=== PATIENT | female | born 1935 | race African-American/Black ===

== ENCOUNTER → 2016-08-25 | Emergency (ER) | payer OTHER ==
[~2016-08-25] MED LIST: EPINEPHrine/PF 1 MG/1 ML (1:1,000) AMPULE IVPUSH ONE; NOREPINEPHRINE BITARTRATE 4 MG/4 ML ML IV ONE; NOREPINEPHRINE BITARTRATE 4,000 MCG in DEXTROSE 5%-WATER - 496 ML IV SCH; PIPERACILLIN/TAZOB 3.375 GM/50 ML PRE-DOCKED IV ONE; SODIUM BICARBONATE 4.2% 5 MEQ/10 ML DISP.SYRIN IVPUSH ONE; SODIUM BICARBONATE 8.4% - 50 ML ONE; SODIUM BICARBONATE 8.4% 50 MEQ/50 ML VIAL IV ONE; VANCOMYCIN 1,000 MG in DEXTROSE 5%-WATER - 250 ML IVPB ONE
[2016-08-25 11:11] VITALS: BMI 31.8
[2016-08-25 12:06] LABS: MCH 23.5 pg (25.7-33.7)
--- NOTE | 2016-08-25 12:10 | PDOC ---
History of Present Illness - History of Present Illness Initial Comments: 08/25/16 13:07 Patient is an 81 year old female with significant medical hx of CHF, HTN and COPD who has been brought to the ED for cardiac arrest since 9:30 AM. The patient was found by her daughter unresponsive and called EMS; they arrived at the scene at 10:13AM. EMS found her asystolic and ACLS protocol was initiated; epinephrine x 4 was given in the field with return of spontaneous circulation. However, prior to arrival, the patient lost blood pressure and returned to asystole. Patient arrived to ED in full cardiopulmonary arrest with active CPR in progress. <Jada Montenegro - Last Filed: 08/25/16 13:07> - General History Source: EMS, Family Exam Limitations: Clinical Condition <Sanjuana Salinas - Last Filed: 08/25/16 13:45> - General Chief Complaint: Cardiac Arrest Stated Complaint: CARIDAC ARREST Time Seen by Provider: 08/25/16 11:38 Past History <Jada Montenegro - Last Filed: 08/25/16 13:07> - Past Medical History Anemia: Yes Asthma: Yes Cardiac Disorders: Yes COPD: Yes (O2 Dependent) HTN: Yes - Surgical History Appendectomy: Yes - Immunization History Immunization Up to Date: No - Psycho/Social/Smoking Cessation Hx Anxiety: No Suicidal Ideation: No Smoking History: Former smoker Have you smoked in the past 12 months: No If you are a former smoker, when did you quit?: 1947 Information on smoking cessation initiated: No Hx Alcohol Use: No Drug/Substance Use Hx: No Substance Use Type: None Hx Substance Use Treatment: No <Sanjuana Salinas - Last Filed: 08/25/16 13:45> - Past Medical History Allergies/Adverse Reactions: Allergies Allergy/AdvReac Type Severity Reaction Status Date / Time No Known Allergies Allergy Verified 08/25/16 11:11 Home Medications: Ambulatory Orders Acetaminophen [Tylenol] 650 mg PO Q4H PRN 05/27/16 Albuterol 2.5/Ipratropium 0.5 [Duoneb -] 1 neb NEB Q6H 05/27/16 Bumetanide [Bumex -] 2 mg PO BID 05/27/16 Budesonide/Formeterol Fumarate [SYMBICORT 160/4.5mcg -] 2 puff IH BID #1 inhaler 06/06/16 Metoprolol Tartrate [Lopressor -] 75 mg PO BID #28 tablet 06/06/16 Prednisone [Deltasone -] 40 mg PO DAILY #20 tablet 06/06/16 Acetazolamide [Diamox -] 500 mg PO BID #28 tablet 06/08/16 Digoxin [Lanoxin -] 0.125 mg PO DAILY #14 tablet 06/08/16 Folic Acid 1 mg PO DAILY #14 tablet 06/08/16 Melatonin 6 mg PO HS #40 tablet 06/08/16 Polyethylene Glycol 3350 [Miralax 119 gm Btl -] 17 gm PO DAILY #14 bottle Potassium Chloride 20 meq PO BID #40 tablet.er 06/08/16 Prednisone [Deltasone -] 20 mg PO DAILY tablet 06/08/16 Tiotropium [place] [Spiriva] 18 mcg IH DAILY #1 inhaler 06/08/16 Warfarin Sodium [Coumadin] 3 mg PO DAILY #20 tablet 06/08/16 Review of Systems - Review of Systems Comments:: 08/25/16 13:08 Unable to asses. <Jada Montenegro - Last Filed: 08/25/16 13:07> *Physical Exam - Vital Signs Last Vital Signs Temp Pulse Resp BP Pulse Ox 96.0 F L 105 H 20 195/90 100 08/25/16 12:01 08/25/16 12:01 08/25/16 12:01 08/25/16 12:01 08/25/16 12:01 - Physical Exam Comments: 08/25/16 13:09 GENERAL: Unresponsive HEAD: No signs of trauma EYES: Both pupils are post surgical and fixed. ENT: Patient is intubated NECK: Limited. No tracheal deviation. No JVD. LUNGS: ET tube placement placed by auscultation, breath sounds equal bilaterally with expiratory wheezing. HEART: Initial rhythm asystolic, given epinephrine x 2 and bicarb x 1 with return of spontaneous circulation. ABDOMEN: Obese, soft. EXTREMITIES: 3+ pitting edema lower extremities bilaterally with chronic venous stasis changes. NEUROLOGICAL: Intubated. SKIN: Warm, Dry, normal turgor, no rashes or lesions noted. <Jada Montenegro - Last Filed: 08/25/16 13:07> - Vital Signs Last Vital Signs Temp Pulse Resp BP Pulse Ox 0 L 0/0 08/25/16 11:04 08/25/16 11:04 <RitaSanjuana - Last Filed: 08/25/16 13:45> Heart Score/ECG Review #1 08/25/16 13:32 Sinus tachycardia at 121 bpm Possible Left atrial enlargement Incomplete right bundle branch block Nonspecific ST abnormality Abnormal ECG <Jada Montenegro - Last Filed: 08/25/16 13:07> ED Treatment Course - LABORATORY CBC & Chemistry Diagram: 08/25/16 11:50 08/25/16 11:50 - ADDITIONAL ORDERS Additional order review: Laboratory Results 08/25/16 08/25/16 12:12 11:50 INR 3.99 H D PTT (Actin FS) 41.8 H Urine Color Yellow Urine Appearance Slcloudy Urine pH 6.0 Ur Specific Osborn 1.010 Urine Protein 1+ H Urine Glucose (UA) Negative Urine Ketones Negative Urine Blood Negative Urine Nitrite Negative Urine Bilirubin Negative Urine Urobilinogen 2.0 e.u/dl H Ur Leukocyte Esterase 3+ H 08/25/16 11:50 RBC 3.59 L MCV 87.8 MCHC 26.7 L RDW 20.3 H D MPV 9.5 Neutrophils % 55.9 D Lymphocytes % 35.8 D Monocytes % 6.9 Eosinophils % 0.7 D Basophils % 0.7 D - RADIOLOGY Radiograph Interpretation: 08/25/16 13:27 Chest X-Ray Since 06/01/2016, again noted is the large heart with degenerative changes. There is a new endotracheal tube with tip well above the brad. There is new NG tube with its tip below the GE junction. The lungs appear better aerated though there is still some atelectasis or infiltrate at both bases. There ay be right pleural fluid as well. Follow-up recommended. Reported By: Trevor Foster MD - Medications Given in the ED: ED Medications Discontinued Medications Generic Name Dose Route Start Last Admin Trade Name Freq PRN Reason Stop Dose Admin Epinephrine HCl 816.47 mcg 08/25/16 12:14 08/25/16 12:27 Epinephrine 1:1000 P/F - IVPUSH 08/25/16 12:15 816.47 mcg ONCE ONE Administration Epinephrine HCl 1 mg 08/25/16 12:16 08/25/16 12:27 Adrenalin 1:10,000 - IVPUSH 08/25/16 12:17 1 mg ONCE ONE Administration Sodium Bicarbonate 4.2 meq 08/25/16 12:15 08/25/16 12:27 Sodium Bicarbonate 4.2% - IVPUSH 08/25/16 12:16 4.2 meq ONCE ONE Administration Sodium Bicarbonate 1 meq 08/25/16 12:17 08/25/16 12:27 Sodium Bicarbonate 8.4% - IV 08/25/16 12:18 1 meq ONCE ONE Administration - Consult/PCP Time Called: 12:20 (spoke with covering physician for Dr. Miller) Case discussed with personal care physician: Ottoniel Miller <Jada Montenegro - Last Filed: 08/25/16 13:07> - LABORATORY CBC & Chemistry Diagram: 08/25/16 11:50 08/25/16 11:50 - RADIOLOGY Radiology Studies Ordered: Category Date Time Status CHEST X-RAY PORTABLE* [RAD] Stat Radiology 08/25/16 11:41 Taken <Sanjuana Salinas - Last Filed: 08/25/16 13:45> Medical Decision Making - Medical Decision Making 08/25/16 13:40 81-year-old female with history of COPD, hypertension, CHF who presented to the emergency department by EMS intubated in full cardiopulmonary arrest with CPR in progress following an asystolic arrest. The patient had return of spontaneous circulation in the field transiently but lost her blood pressure and pulse and presented to the emergency department asystolic. ACLS protocol including chest compressions was continued with multiple rounds of epi and bicarbonate given. The patient had 4 episodes of cardiac arrest in the emergency department with return of spontaneous circulation 3 times. Both myself and Dr. Gardiner, the hospitalist, had mey conversations with the family including poor prognosis as well as medical futility following the multiple episodes of cardiac arrest. It was decided that given the patient's poor prognosis, if she went into cardiac arrest an additional time there would be no further resuscitative efforts (see code sheet). The family was in agreement with this plan. The patient was pronounced at 12:53 PM. The patient's next of kin rapid bedside and are obviously informed of the patient's . The medical assistant prn was called and the case was declined for autopsy. Dr. Hernandez (covering for Dr. Miller) was initially called and informed of the patient's condition and poor prognosis. We are actively calling him back to inform him of the patient's . <Sanjuana Salinas - Last Filed: 08/25/16 13:45> *DC/Admit/Observation/Transfer - Attestations Scribe Attestion: 08/25/16 13:27 Documentation prepared by Jada Montenegro, acting as medical practice manager for Sanujana Salinas MD. <Jada Montenegro - Last Filed: 08/25/16 13:07> - Discharge Dispostion Admit: No - Attestations Physician Attestion: 08/25/16 13:44 I, Dr. Sanjuana Salinas, attest that the scribes documentation that appears above has been prepared under my direction and personally reviewed by me in its entirety. I confirmed that the note above accurately reflects all work, treatment, procedures, and medical decision-making performed by me. <Sanjuana Salinas - Last Filed: 08/25/16 13:45> Diagnosis at time of Disposition: Cardiac arrest - Discharge Dispostion Disposition: Condition at time of disposition: - Referrals Referrals: Ottoniel Miller MD [Primary Care Provider] -
[2016-08-25 12:12] VITALS: BP 195/90; PULSE 105; TEMP 96
[2016-08-25 12:12] LABS: MCHC 26.7 g/dl (32.0-36.0); MEAN CELL VOLUME 87.8 fl (80-96); MEAN PLT VOLUME 9.5 fl (7.5-11.1); RDW 20.3 % (11.6-15.6); WHITE BLOOD COUNT 18.2 K/mm3 (4.0-10.0)
[2016-08-25 12:19] LABS: INR 3.99 (0.82-1.09); PROTHROMBIN TIME (PATIENT) 45.2 SEC (9.98-11.88)
[2016-08-25 12:22] LABS: ACTIVATED PTT 41.8 SECONDS (26.9-34.4)
[2016-08-25 12:32] LABS: ALBUMIN 1.9 g/dl (3.4-5.0); BILIRUBIN,TOTAL 0.8 mg/dL (0.2-1.0); CALCIUM 7.8 mg/dL (8.5-10.1); CREATININE 1.6 mg/dL (0.55-1.02); MAGNESIUM 2.6 mg/dL (1.8-2.4); TOT PROT 4.8 g/dl (6.4-8.2)
[2016-08-25 12:35] LABS: URINE APPEARANCE SLCLOUDY; URINE BILIRUBIN NEGATIVE (NEGATIVE); URINE BLOOD NEGATIVE (NEGATIVE); URINE COLOR YELLOW; URINE GLUCOSE (UA) NEGATIVE (NEGATIVE); URINE KETONE NEGATIVE (NEGATIVE); URINE NITRITE NEGATIVE (NEGATIVE); URINE UROBILINOGEN 2.0 E.U/dl E.U./dl (0.2-1.0)
[2016-08-25 12:38] LABS: URINE LEUK ESTERASE 3+ (NEGATIVE); URINE PROTEIN 1+ (NEGATIVE)
[2016-08-25 12:38] LABS: PHOSPHOROUS 8.3 mg/dL (2.5-4.9); TROPONIN I 0.15 ng/ml (0.00-0.05)
[2016-08-25 12:42] LABS: GRANULAR CASTS 2 /lpf; URINE HYALINE CAST 59 /lpf; URINE MUCUS RARE; URINE WBC 115 /hpf (3-5)
[2016-08-25 13:06] LABS: PLATELET COMMENT2 NO CLOTTING DETECTED; PLATELET COUNT 53 K/MM3 (134-434); PLATELET ESTIMATE DECREASED (NORMAL)
[2016-08-25 13:08] LABS: ANISOCYTOSIS 1+; HYPOCHROMIA 1+; MICROCYTOSIS 1+; POIKILOCYTOSIS 1+; POLYCHROMASIA 1+
--- NOTE | 2016-08-25 17:27 | EKG ---
Test Reason : Blood Pressure : / mmHG Vent. Rate : 121 BPM Atrial Rate : 121 BPM P-R Int : 166 ms QRS Dur : 108 ms QT Int : 322 ms P-R-T Axes : 072 045 088 degrees QTc Int : 457 ms SINUS TACHYCARDIA POSSIBLE LEFT ATRIAL ENLARGEMENT INCOMPLETE RIGHT BUNDLE BRANCH BLOCK NONSPECIFIC ST ABNORMALITY ABNORMAL ECG WHEN COMPARED WITH ECG OF 27-MAY-2016 13:52, SINUS RHYTHM HAS REPLACED ATRIAL FIBRILLATION MINIMAL CRITERIA FOR ANTEROSEPTAL INFARCT ARE NO LONGER PRESENT T WAVE INVERSION NO LONGER EVIDENT IN LATERAL LEADS Confirmed by CARLY TAMEZ MD ([id number]) on 08/25/2016 5:27:00 PM Referred By: Confirmed By:CARLY TAMEZ MD
== END | disposition expired ==
LOC: JER 11:04
PROC: 5A12012 Performance of Cardiac Output, Single, Manual (ICD-10-PCS; principal; 2016-08-25)
PROC: 0T9B70Z Drainage of Bladder with Drainage Device, Via Natural or Artificial Opening (ICD-10-PCS; 2016-08-25)
DX: I46.9 Cardiac arrest, cause unspecified (principal); I50.9 Heart failure, unspecified; I10 Essential (primary) hypertension; J44.9 Chronic obstructive pulmonary disease, unspecified; J45.909 Unspecified asthma, uncomplicated; D64.9 Anemia, unspecified; Z99.81 Dependence on supplemental oxygen
CPT/HCPCS: 36415; 51702; 71010-TC; 80053; 80162; 81003; 81015; 82550; 83605; 83735; 83880; 84100; 84484; 85025; 85610; 85730; 87040; 87086; 87186; 92950; 93005; 93010; 99285-25